=== PATIENT | female | born 1955 | race Caucasian/White ===

== ENCOUNTER → 2018-06-26 13:32 | Outpatient (CLI) | payer OTHER, SELFPAY ==
--- NOTE | 2018-06-26 | DI.MG.S_ITS ---
BILATERAL DIGITAL SCREENING MAMMOGRAM 3D/2D WITH CAD: 06/26/2018 CLINICAL: Routine screening. Comparison is made to exams dated: 05/18/2017 mammogram, 04/14/2016 mammogram, and 03/12/2015 mammogram - [facility]. The tissue of both breasts is extremely dense, which lowers the sensitivity of mammography. Current study was also evaluated with a Computer Aided Detection (CAD) system. There is an asymmetry in the right breast middle depth inner region seen on the craniocaudal view only. There is possible architectural distortion associated with the asymmetry. No other significant masses, calcifications, or other findings are seen in either breast. IMPRESSION: INCOMPLETE: NEEDS ADDITIONAL IMAGING EVALUATION The asymmetry in the right breast is indeterminate. Additional views with possible ultrasound are recommended. This exam was interpreted at Station ID: [id number]. NOTE: For mammograms, a report in lay terms will be sent to the patient. Approximately 15% of breast malignancies will not be visualized mammographically. In the management of a palpable breast mass, a negative mammogram must not discourage biopsy of a clinically suspicious lesion. Electronically Signed By: Scotty Morales M.D. ecl/:06/26/2018 19:30:38 letter sent: Additional Imaging Needed ACR BI-RADS Category 0: Incomplete 3340F
== END ==
PROVIDERS: Family Provider Family Medicine; PCP Family Medicine; Visit Provider Family Medicine
DX: Z12.31 Encounter for screening mammogram for malignant neoplasm of breast (principal)
CPT/HCPCS: 77063; 77067

== ENCOUNTER → 2018-07-10 13:48 | Outpatient (CLI) | payer OTHER, SELFPAY ==
--- NOTE | 2018-07-10 | DI.MG.S_ITS ---
UNILATERAL RIGHT DIGITAL DIAGNOSTIC MAMMOGRAM 3D/2D WITH ADDITIONAL VIEWS: 07/10/2018 CLINICAL: Additional evaluation requested from prior study. Comparison is made to exams dated: 06/26/2018 mammogram, 05/18/2017 mammogram, and 04/14/2016 mammogram - [facility]. The tissue of the right breast is extremely dense, which lowers the sensitivity of mammography. There is a benign oval equal density asymmetry with an indistinct margin in the right breast middle depth medial region seen on the craniocaudal view only. This is not seen in additional views. No other significant masses or calcifications are seen in the breast. IMPRESSION: BENIGN There is no mammographic evidence of malignancy. A 1 year screening mammogram is recommended. This exam was interpreted at Station ID: [id number]. NOTE: For mammograms, a report in lay terms will be sent to the patient. Approximately 15% of breast malignancies will not be visualized mammographically. In the management of a palpable breast mass, a negative mammogram must not discourage biopsy of a clinically suspicious lesion. Electronically Signed By: Franklin aleman/xavier:07/10/2018 15:12:12 letter sent: Normal Exam ACR BI-RADS Category 2: Benign Finding(s) 3342F
== END ==
PROVIDERS: Family Provider Family Medicine; PCP Family Medicine; Visit Provider Family Medicine
DX: R92.8 Other abnormal and inconclusive findings on diagnostic imaging of breast (principal)
CPT/HCPCS: 77065; G0279

== ENCOUNTER → 2019-08-06 16:38 | Outpatient (CLI) | payer MEDICARE, OTHER, SELFPAY ==
--- NOTE | 2019-08-06 | DI.RAD.S_ITS ---
PROCEDURE: XR ANKLE LT MIN 3V INDICATIONS: left ankle pain TECHNIQUE: 3 views of the ankle were acquired. COMPARISON: None. FINDINGS: Bones: No fractures or dislocations. Ankle mortise is normally aligned. No suspicious bony lesions. Well-defined plantar calcaneal enthesophyte is seen. Soft tissues: No tibiotalar joint effusion. Achilles tendon appears normal. IMPRESSION: No ankle fracture or dislocation. Intact ankle mortise. Dictated by: Richardson Lee M.D. on 08/06/2019 at 18:04 Approved by: Richardson Lee M.D. on 08/06/2019 at 18:05
== END ==
PROVIDERS: Family Provider Family Medicine; PCP Family Medicine; Visit Provider Family Medicine
DX: M25.572 Pain in left ankle and joints of left foot (principal)
CPT/HCPCS: 73610

== ENCOUNTER → 2019-08-14 16:49 | Outpatient (CLI) | payer MEDICARE, OTHER, SELFPAY ==
--- NOTE | 2019-08-14 | DI.MG.S_ITS ---
BILATERAL DIGITAL SCREENING MAMMOGRAM 3D/2D WITH CAD: 08/14/2019 CLINICAL: Routine screening. Comparison is made to exams dated: 07/10/2018 mammogram, 06/26/2018 mammogram, and 05/18/2017 mammogram - [facility]. The tissue of both breasts is heterogeneously dense. This may lower the sensitivity of mammography. Current study was also evaluated with a Computer Aided Detection (CAD) system. No significant masses, calcifications, or other findings are seen in either breast. There has been no significant interval change. IMPRESSION: NEGATIVE There is no mammographic evidence of malignancy. A 1 year screening mammogram is recommended. This exam was interpreted at Station ID: [id number]. NOTE: For mammograms, a report in lay terms will be sent to the patient. Approximately 15% of breast malignancies will not be visualized mammographically. In the management of a palpable breast mass, a negative mammogram must not discourage biopsy of a clinically suspicious lesion. Electronically Signed By: Ailyn burns/xavier:08/15/2019 08:32:12 letter sent: Normal Exam ACR BI-RADS Category 1: Negative 3341F
== END ==
PROVIDERS: PCP Family Medicine; Visit Provider Family Medicine
DX: Z12.31 Encounter for screening mammogram for malignant neoplasm of breast (principal)
CPT/HCPCS: 77063; 77067

== ENCOUNTER → 2019-12-19 09:26 | Outpatient (CLI) | payer MEDICARE, OTHER, SELFPAY ==
--- NOTE | 2019-12-19 | DI.US.S_ITS ---
PROCEDURE: US PELVIC COMPLETE INDICATIONS: PELVIC AND PERINEAL PAIN TECHNIQUE: Real-time scanning was performed of the pelvic organs, with image documentation. Additional endovaginal scanning was necessary due to incomplete visualization of the adnexal and endometrial structures by transabdominal scanning. COMPARISON: [facility], , PELVIC COMPLETE, 09/03/2012, 13:02. FINDINGS: Transabdominal scanning: Limited scanning through the kidneys shows no hydronephrosis. No pathologic free abdominal or pelvic fluid. Endovaginal scanning: Uterus: Uterus is normal in size at 7.8 x 4.7 x 4.3 cm. The endometrium measures 9 mm in combined thickness. Trace fluid can be seen along the endometrial stripe. A cervical polyp versus mass can be seen it measures up to 1 cm, with an associated vascular stalk. Hypoechoic uterine lesions are seen, which are attributed to fibroids. They measure as follows: Left anterior uterus, intramural, 1 x 1 x 1.1 cm Left posterior uterus, subserosal, 1.1 x 1.3 x 1.1 cm. Calcification is seen associated with this fibroid. Ovaries: The right ovary measures 1.3 x 0.7 x 0.9 cm. The left ovary measures 2.2 x 2 x 0.9 cm. The ovaries have a normal sonographic appearance. No adnexal masses are seen. IMPRESSION: A 1 cm mass versus polyp can be seen in the cervix. A vascular stalk and the seen. Please consider endoscopy for further evaluation. Multiple small uterine fibroids are again seen. Dictated by: Farshad Morton M.D. on 12/19/2019 at 11:19 Approved by: Farshad Morton M.D. on 12/19/2019 at 11:21
== END ==
PROVIDERS: PCP Family Medicine; Visit Provider Family Medicine
DX: R10.2 Pelvic and perineal pain (principal); D25.1 Intramural leiomyoma of uterus; D25.2 Subserosal leiomyoma of uterus; N88.9 Noninflammatory disorder of cervix uteri, unspecified
CPT/HCPCS: 76830; 76856

== ENCOUNTER → 2020-01-06 13:30 | Outpatient (CLI) | payer MEDICARE, OTHER, SELFPAY ==
--- NOTE | 2020-01-06 14:47 | DI.CT.S_ITS ---
PROCEDURE: CT KIDNEY URETER BLADDER (KUB) INDICATIONS: Hematuria, belly pains TECHNIQUE: Noncontrast 5 mm thick sections acquired from the diaphragms to the symphysis. 5 mm thick coronal and sagittal reformats were then performed. For radiation dose reduction, the following was used: automated exposure control, adjustment of mA and/or kV according to patient size. COMPARISON: [facility], CT, ABDOMEN/PELVIS WITHOUT CONTRAS, 04/10/2014, 15:14. FINDINGS: Image quality: Excellent. Lung bases: 7 mm left basilar opacity is present. It is unchanged since 2013. Heart size is normal. Urinary system: Both kidneys are normal in size. No kidney stones. No hydronephrosis or perinephric fat stranding. Both ureters appear non-dilated throughout their expected courses. Bladder wall thickness is normal; no calcified bladder stones. Other solid organs: Liver is normal in size. Gallbladder demonstrates a dependent calcification without wall thickening. Pancreas is normal in contours. Spleen is normal in size. No adrenal nodules. Peritoneum and bowel: Unenhanced bowel loops are nonobstructive. There is a thickened appearance of the descending colon extending to the sigmoid with diverticula. Normal pericolonic inflammatory changes identified. No free fluid or free air is identified. Nodes and vessels: No retroperitoneal or mesenteric adenopathy by size criteria. Aorta and inferior vena cava are normal in caliber. Abdominal wall: No ventral hernias. Pelvis: No free pelvic fluid. No inguinal hernias or adenopathy. Bones: No suspicious bony lesions. No vertebral body compression fractures. IMPRESSION: 1. There is thickening and mild pericolonic inflammatory change within the descending colon extending to the sigmoid colon. Diverticula are present in overall appearance is suggestive of colitis secondary to diverticulitis. No abscess, perforation or free air is identified. Dictated by: Hoda Poe M.D. on 01/06/2020 at 17:29 Approved by: Hoda Poe M.D. on 01/06/2020 at 17:36
== END ==
PROVIDERS: PCP Family Medicine; Referring Provider Family Medicine; Visit Provider Physician Assistant
DX: R31.9 Hematuria, unspecified (principal); K57.30 Diverticulosis of large intestine without perforation or abscess without bleeding
CPT/HCPCS: 74176

== ENCOUNTER → 2020-05-14 10:30 | Outpatient (CLI) | payer MEDICARE, OTHER, SELFPAY ==
--- NOTE | 2020-05-14 | DI.RAD.S_ITS ---
PROCEDURE: XR RIBS BI MIN 4V W CXR1V INDICATIONS: Rib pain TECHNIQUE: 2 views of the left and right ribs were acquired, along with a single view chest. COMPARISON: None. FINDINGS: Surgical changes and devices: The Bones and chest wall: No fractures or dislocations. No suspicious bony lesions. Overlying soft tissues appear unremarkable. Bilateral shoulder joint degeneration. Lungs and pleura: No pleural effusions or pneumothorax. Lungs appear clear. Mediastinum: Mediastinal contours appear normal. Heart size is normal. IMPRESSION: No acute disease Dictated by: Jed Gross M.D. on 05/14/2020 at 12:33 Approved by: Jed Gross M.D. on 05/14/2020 at 12:35
== END ==
PROVIDERS: PCP Family Medicine; Referring Provider Family Medicine; Visit Provider Family Medicine
DX: R07.81 Pleurodynia (principal); M19.011 Primary osteoarthritis, right shoulder; M19.012 Primary osteoarthritis, left shoulder
CPT/HCPCS: 71111

== ENCOUNTER → 2020-08-16 11:03 | Outpatient (CLI) | payer MEDICARE, OTHER, SELFPAY ==
--- NOTE | 2020-08-16 | DI.MG.S_ITS ---
BILATERAL DIGITAL SCREENING MAMMOGRAM 3D/2D WITH CAD: 08/16/2020 CLINICAL: Routine screening. Comparison is made to exams dated: 08/14/2019 mammogram, 07/10/2018 mammogram, 06/26/2018 mammogram, 05/18/2017 mammogram, 03/12/2015 mammogram, and 04/14/2016 mammogram - [facility]. The tissue of both breasts is heterogeneously dense. This may lower the sensitivity of mammography. Current study was also evaluated with a Computer Aided Detection (CAD) system. There are biopsy clips in the left breast. No significant masses, calcifications, or other findings are seen in either breast. There has been no significant interval change. IMPRESSION: NEGATIVE There is no mammographic evidence of malignancy. A 1 year screening mammogram is recommended. This exam was interpreted at Station ID: [id number]. NOTE: For mammograms, a report in lay terms will be sent to the patient. Approximately 15% of breast malignancies will not be visualized mammographically. In the management of a palpable breast mass, a negative mammogram must not discourage biopsy of a clinically suspicious lesion. Electronically Signed By: Moises thacker/xavier:08/16/2020 18:29:43 letter sent: Normal Exam ACR BI-RADS Category 1: Negative 3341F
== END ==
PROVIDERS: PCP Family Medicine; Referring Provider Family Medicine; Visit Provider Family Medicine
DX: Z12.31 Encounter for screening mammogram for malignant neoplasm of breast (principal)
CPT/HCPCS: 77063; 77067

== ENCOUNTER → 2020-09-07 11:00 | Outpatient (CLI) | payer MEDICARE, OTHER, SELFPAY ==
[2020-09-08 06:43] LABS: COVID19 Sendout Not Detected (Not Detect)
== END ==
PROVIDERS: PCP Family Medicine; Visit Provider Physician Assistant
DX: Z01.812 Encounter for preprocedural laboratory examination (principal)
CPT/HCPCS: 87635

== ENCOUNTER 2020-09-10 11:14 | Day surgery (SDC) | payer MEDICARE, OTHER, SELFPAY ==
[2020-09-08 07:37] VITALS: BMI 23.0
[2020-09-10] VITALS (8 sets, daily range): BP systolic 115–143; BP diastolic 47–73; PULSE 71–94; RESP 13–18; TEMP 36.1–37.2; O2SAT 87–98; BMI 22.4
--- NOTE | 2020-09-10 | PATH_ITS ---
[facility] Accession Number: [id number] . 01 Material submitted: . PART A: endometrium - ENDOMETRIAL CURETTINGS PART B: colon - TRANSVERSE COLON POLYP 6MM . 02 Diagnosis: A. Endometrium, Curettings: Scant, minute fragment of probable endometrial stroma. Additional levels were examined. No evidence of neoplasia. . B. Transverse Colon, Polyp 6 mm, Biopsy: Sessile serrated adenoma. [facility] 09/15/2020 1600 Local . 02 Electronically signed: . Jeannie Dejesus MD, Pathologist NPI- [id number] . 01 Gross description: . A. The specimen is received in formalin, labeled endometrial curettings, and consists of multiple minute rudolph-white fragments of soft tissue measuring 0.5 x 0.4 x 0.2 cm in aggregate. The specimen is filtered and entirely submitted in cassette A1. B. The specimen is received in formalin, labeled transverse colon polyp, and consists of a 0.7 x 0.5 x 0.3 cm, rudolph fragment of soft tissue which is entirely submitted in cassette B1. ([id number]) /[place] 09/11/2020 1815 Local . 02 Pathologist provided ICD-10: N95.0, D12.3 . 02 CPT . 271544, [id number] Performed at: 01 [facility] [address], [place], [place] [id number] MD Franklin Tsang MD Phone: [phone] Performed at: 02 [facility] [address] [place], [place] [id number] MD Jeannie Dejesus MD Phone: [phone]
--- NOTE | 2020-09-10 11:57 | SUR.PREOP ---
pt states she passed out on the toilet at 0900 this morning. When pt arrived she stated she was fine. RN checked blood sugar and it was 111. pt blood pressure was good. Pt was given fluids and RN let Dr. Pena no about her passing out at home.
[2020-09-10] MEDS: LACTATED RINGERS 1,000 ML 100 ML IV ×2 (12:00→14:16)
--- NOTE | 2020-09-10 12:26 | PM.HP.1 ---
History of Present Illness History of Present Illness Date Patient Seen: 09/10/20 Chief complaint: HYSTEROSCOPY DEC/POLYPECTOMY & SCREEN COLONOSCOPY Narrative: 65 year old female comes in today for consideration of a screening colonoscopy. One previously time colonoscopy approximately 10 years ago, reportedly normal. She has a history of diverticulitis, nothing current. Stools are at baseline constipated. Otherwise, there have been no lower GI symptoms suggesting disease such as change in bowel habits, bleeding, abdominal pain or anemia. There's been no family history of colon cancer or colon polyps. Overall health issues have been stable, including no major cardiac events for at least 6 weeks. PCP: Dr. 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 Patient History Medical History (Updated 09/10/20 @ 11:53 by Prema Matthews RN) Anxiety (Acute) Cervical polyp (Acute) Cervical stenosis (uterine cervix) (Acute) Diverticulitis (Acute) Endometrial hyperplasia (Acute) Fibroid (Acute) History of endometrial biopsy (Acute 08/18/20) Hypertension (Acute) Surgical History (Updated 09/08/20 @ 07:44 by Zenobia Solis RN) Hx of breast biopsy (Acute) Hx of tubal ligation (Acute) Family & Social History Social History: household members spouse Tobacco & Substance use: Smoking Status Never smoker alcohol intake current alcohol intake frequency holiday/special occasion Substance Use Type does not use Meds Home Medications and Allergies Home Medications Medication Instructions Recorded Confirmed Type alprazolam 0.25 mg tablet 0.25 mg PO DAILY 08/18/20 09/10/20 History atenolol 25 mg tablet 25 mg PO DAILY 08/18/20 09/10/20 History paroxetine HCl 40 mg tablet 40 mg PO DAILY 08/18/20 09/10/20 History Allergies Allergy/AdvReac Type Severity Reaction Status Date / Time iodine [IODINE] Allergy Intermediate Anaphylaxis Verified 09/10/20 11:44 ciprofloxacin [CIPROFLOXACIN] Allergy Unknown Verified 09/10/20 11:44 Penicillins [PENICILLINS] Allergy Unknown Verified 09/10/20 11:44 Sulfa (Sulfonamide Allergy Unknown rash Verified 09/10/20 11:44 Antibiotics) [SULFA (SULFONAMIDE ANTIBIOTICS)] Review of Systems Review of Systems ROS: Yes All systems reviewed with the patient and are negative except as otherwise documented Exam Vital Signs (past 8 hours): - 09/10/20 11:37 Temperature 98.3 F Pulse Rate 71 Respiratory Rate 18 Blood Pressure 138/71 Pulse Oximetry 98 Oxygen Delivery Method Room Air Narrative Exam Narrative: GENERAL: Alert and oriented, appearing stated age and in no acute distress. HEENT: Head normocephalic/atraumatic. Pupils equal, round, and reactive to light and accomodation. Extraocular muscles intact. Tympanic membranes clear. Nasal mucosa moist, septum midline. Oral mucosa moist, no lesions. Neck soft and supple, no lymphadenopathy. LUNGS: Clear to ausculation bilaterally, no wheezes, rhonchi or rales. CV: Normal S1 and S2 with regular rate and rhythm, no audible murmurs, rubs or gallops. ABDOMEN: Soft, non-tender, non-distended, no organomegaly. Positive bowel sounds. EXTREMITIES: No clubbing, cyanosis, or edema. NEURO: Cranial nerves II through XII grossly intact, no focal deficits. PSYCH: Alert and oriented x 3. SKIN: No concerning lesions. Assessment & Plan Assessment & Plan narrative: 1. Screening for colon cancer 2. History of diverticulitis 3. Constipation Plan for colonoscopy. The nature and character of the procedure as well as anticipated results were discussed. The possibility of not completing the procedure was also discussed. Possible complications including aspiration pneumonia, bleeding, perforation and reaction to medications either for sedation or preparation and missed lesions were discussed. Questions were answered and proceeding to the colonoscopy was elected. Informed consent signed. I sincerely appreciate the referral allowing me to participate in this patient's care. Please contact me with any questions or concerns.
--- NOTE | 2020-09-10 12:32 | PM.OP.ENDO ---
Operative Date/Time/Diagnoses Date of procedure: 09/10/20 Procedure Notes SCOAP/Timeout: 1:24 p.m. Procedure in detail: ENDOSCOPIST: Tish Mcdonald MD Anesthesiologist: Dr. Padron Sedation start time: 1:25 p.m. Sedation end time: 1:59 p.m. PROCEDURE: Colonoscopy with biopsy INDICATIONS: 1. Screening for colon cancer 2. History of diverticulitis 3. Constipation MEDICATION: Levsin 0.125 mg sublingual, incremental doses of Versed and fentanyl until appropriate level sedation achieved. ASA CLASS: 2 CECAL WITHDRAWAL TIME: 8 minutes COMPLICATIONS: None. EXTENT OF PROCEDURE: Cecum. QUALITY OF PREP: Good with portions of liquid stool. PROCEDURE: Prior to insertion of the colonoscope, a digital rectal examination was accomplished with circumferential palpation of the distal rectal mucosa without significant findings being noted. The high-definition pediatric colonoscope was passed into the rectum in the usual fashion and advanced over to the cecum without difficulty. The ileocecal valve, appendiceal stoma, and medial wall all could be inspected and []no abnormalities were seen. ASCENDING COLON: As the colonoscope was withdrawn, care was taken to expose and inspect the haustral folds and no abnormalities were seen. HEPATIC FLEXURE: Normal, no polyps, diverticula or other abnormalities. TRANSVERSE COLON: A 6 mm polyp seen and removed with cold biopsy forceps. Otherwise, no diverticula or other abnormalities. DESCENDING COLON: Moderate diverticulosis, no polyps or other abnormalities. SIGMOID COLON: Moderate diverticulosis, no polyps or other abnormalities. RECTUM: Normal. J maneuver was produced. There was no significant perianal disease. The J maneuver was broken. The remainder of the rectum was inspected and there was no external hemorrhoid disease. The scope was withdrawn. IMPRESSION: 1. Transverse polyp x1, 6 mm, removed with cold biopsy forceps 2. Moderate diverticulosis, left-sided PLAN: 1. Follow-up in clinic status post pathology results. The possibility of a missed lesion including a malignancy has been discussed with the patient previously. Potential alarm symptoms have been discussed and should be reported immediately. Post-procedure Recommendations: Will call with biopsy results Follow up: weeks (2) Disposition: PACU
[2020-09-10] MEDS: LACTATED RINGERS 1,000 ML 42 ML IV (12:38)
--- NOTE | 2020-09-10 12:44 | PM.PREOP ---
Pre-operative Note COVID-19 COVID-19 status: Negative Result date/Date tested (Pos, Neg/Pending): 09/06/20 Interval Note History & Physical reviewed/Exam performed by Physician: Yes Changes to H&P: No H&P completed within 30 days and has changed as indicated here:: 09/10/20
--- NOTE | 2020-09-10 12:44 | PM.HP.1 ---
History of Present Illness History of Present Illness Date Patient Seen: 09/10/20 Time Patient Seen: 12:45 Chief complaint: HYSTEROSCOPY DEC/POLYPECTOMY & SCREEN COLONOSCOPY Narrative: Patient is a 65-year-old 2 para 2 who presents for a D&C hysteroscopy due to a thickened endometrial lining on ultrasound, fluid in the endometrial canal, and cervical stenosis. Unable to do an endometrial biopsy in the office. Patient History Medical History (Updated 09/10/20 @ 11:53 by Prema Matthews RN) Anxiety (Acute) Cervical polyp (Acute) Cervical stenosis (uterine cervix) (Acute) Diverticulitis (Acute) Endometrial hyperplasia (Acute) Fibroid (Acute) History of endometrial biopsy (Acute 08/18/20) Hypertension (Acute) Surgical History (Updated 09/08/20 @ 07:44 by Zenobia Solis RN) Hx of breast biopsy (Acute) Hx of tubal ligation (Acute) Family & Social History Social History: household members spouse Tobacco & Substance use: Smoking Status Never smoker alcohol intake current alcohol intake frequency holiday/special occasion Substance Use Type does not use Meds Home Medications and Allergies Home Medications Medication Instructions Recorded Confirmed Type alprazolam 0.25 mg tablet 0.25 mg PO DAILY 08/18/20 09/10/20 History atenolol 25 mg tablet 25 mg PO DAILY 08/18/20 09/10/20 History paroxetine HCl 40 mg tablet 40 mg PO DAILY 08/18/20 09/10/20 History Allergies Allergy/AdvReac Type Severity Reaction Status Date / Time iodine [IODINE] Allergy Intermediate Anaphylaxis Verified 09/10/20 11:44 ciprofloxacin [CIPROFLOXACIN] Allergy Unknown Verified 09/10/20 11:44 Penicillins [PENICILLINS] Allergy Unknown Verified 09/10/20 11:44 Sulfa (Sulfonamide Allergy Unknown rash Verified 09/10/20 11:44 Antibiotics) [SULFA (SULFONAMIDE ANTIBIOTICS)] Exam Vital Signs (past 8 hours): - 09/10/20 11:37 Temperature 98.3 F Pulse Rate 71 Respiratory Rate 18 Blood Pressure 138/71 Pulse Oximetry 98 Oxygen Delivery Method Room Air Narrative Exam Narrative: HEENT: No thyromegaly, no anterior cervical or supraclavicular lymphadenopathy. Lungs:Clear to auscultation bilaterally, no wheezes. Cardiovascular: Regular rate and rhythm, no murmurs, rubs, or gallops. Abdomen: Well-healed scars. No hepatosplenomegaly. No masses palpable. External genitalia: Normal Vagina: Normal Cervix: Stenotic Bimanual exam: 8 Week size uterus. Mobile. Rectal: No masses. Assessment & Plan Assessment & Plan narrative: Assessment: 65-year-old 2 para 2 with a thickened endometrial lining and fluid in the endometrial canal on ultrasound Cervical stenosis Plan: D&C hysteroscopy with possible polypectomy The risks, benefits, and alternatives to the procedure were explained to the patient. The risks including bleeding, infection, and uterine perforation. She understands these risks and agrees to proceed. A full par Q was held and consent form was signed. COVID-19 COVID-19 status: Negative Result date/Date tested (Pos, Neg/Pending): 09/07/20 Time Spent With Patient Time with patient: 15-24 minutes
--- NOTE | 2020-09-10 13:47 | P.OP_ITS ---
Operative Date/Time/Diagnoses Date of procedure: 09/10/20 Time of procedure: 13:48 Pre-op diagnosis: Endometrial hyperplasia on ultrasound Cervical stenosis Fluid in the endometrial canal Post-op diagnosis: same Procedure & Clinicians Procedure: Procedures Operation Date: 09/10/20 12:30 Actual Procedures Side Surgeon p Hysteroscopy D&C Robyn Sears MD s Colonoscopy Tish Mcdonald MD Indications: Endometrial hyperplasia by ultrasound Fluid in the endometrial canal by ultrasound Cervical stenosis Surgeon: Robyn Sears Anesthesia Type: General (LMA) Operative Notes Findings: Eight week size slightly retroverted uterus Very stenotic cervical os Both fallopian tube ostia observed No polyps or fibroids Closure Type: not applicable Specimen(s): endometrial curettings Estimated blood loss (mL): 3 Blood products transfused: none Procedure in detail: After informed consent was obtained, the patient was taken to the operating room where she was placed in the dorsal supine position. After adequate LMA general anesthesia was achieved, she was placed in the dorsal lithotomy position, and prepped and draped in the usual sterile fashion. A time-out was performed. A bivalve speculum was placed into the vagina and the a nterior lip of the cervix grasped with a single-tooth tenaculum. Starting with the gold handled small dilators the cervical os was dilated up to a # 4 dilator. Then using the Hegar dilators dilation continue to # 8 Hegar dilator. There was a gush of serosanguineous fluid once the cervix was dilated. The hysteroscope passed easily into the endometrial cavity. Initial inspection showed both fallopian tube ostia. There were no polyps or fibroids. There was no thickening of the endometrial lining. The hysteroscope was removed from the uterus. Gentle sharp curettage was performed yielding minimal amount of endometrial curettings. The instruments were removed from the uterus. The single-tooth tenaculum was removed from the anterior lip of the cervix. The bivalve speculum was removed from the vagina. Sponge, lap, and instrument counts were correct x2. The patient tolerated the procedure well, and was taken to PACU in stable condition. Complications: none Post-operative Condition: stable Disposition: PACU Plan for aftercare: Home after recovery
--- NOTE | 2020-09-10 13:49 | SUR.OPER ---
Lithotomy on padded OR bed, head on pillow, arms secured on padded arm boards at <90 degrees abduction. Legs secured in padded yellow fins stirrups.
--- NOTE | 2020-09-10 13:49 | SUR.OPER ---
Lithotomy on padded OR bed, head on pillow, arms secured on padded arm boards at <90 degrees abduction. Legs secured in padded yellow fins stirrups. convert to left lateral decubitous for colonoscopy
--- NOTE | 2020-09-10 15:42 | SUR.PHASEII ---
Patient ambulatory to bathroom and denies any pain, nausea or dizziness. Small amount of drainage noted to feminine pad but no active bleeding with ambulation. Patient able to dress herself and fresh feminine pad provided. Home with family in stable condition. All discharge paperwork reviewed with patient and all belongings returned.
== END 2020-09-10 15:40 | disposition home or self-care (01) ==
PROVIDERS: PCP Student in an Organized Health Care Education/Training Program; Referring Provider Obstetrics & Gynecology; Visit Provider Obstetrics & Gynecology
PROC: 0UDB8ZZ Extraction of Endometrium, Via Natural or Artificial Opening Endoscopic (ICD-10-PCS; CPT 58558; principal; 2020-09-10 12:30)
PROC: 0DJD8ZZ Inspection of Lower Intestinal Tract, Via Natural or Artificial Opening Endoscopic (ICD-10-PCS; CPT 45378; 2020-09-10 12:30)
DX: Z12.11 Encounter for screening for malignant neoplasm of colon (principal); R93.89 Abnormal findings on diagnostic imaging of other specified body structures; I10 Essential (primary) hypertension; F41.9 Anxiety disorder, unspecified; N88.2 Stricture and stenosis of cervix uteri; K57.30 Diverticulosis of large intestine without perforation or abscess without bleeding; D12.3 Benign neoplasm of transverse colon
CPT/HCPCS: 58558; 45380; J1100; J2250; J2405; J2704; J3010

== ENCOUNTER → 2021-02-03 14:36 | Outpatient (CLI) | payer MEDICARE, OTHER, SELFPAY ==
[2021-02-03] MEDS: COVID-19 VACC, Ad26(JANSSEN)/PF 0.5 ML IM (14:56)
== END ==
PROVIDERS: PCP Student in an Organized Health Care Education/Training Program; Visit Provider Internal Medicine
DX: Z23 Encounter for immunization (principal)
CPT/HCPCS: 0031A; 91303

== ENCOUNTER → 2021-09-09 17:35 | Outpatient (CLI) | payer MEDICARE, OTHER, SELFPAY ==
--- NOTE | 2021-09-09 | DI.MG.S_ITS ---
BILATERAL DIGITAL SCREENING MAMMOGRAM 3D/2D WITH CAD: 09/09/2021 CLINICAL: Routine screening. Comparison is made to exams dated: 08/16/2020 mammogram, 08/14/2019 mammogram, 06/26/2018 mammogram, 05/18/2017 mammogram, 04/14/2016 mammogram, and 07/10/2018 mammogram - [facility]. The tissue of both breasts is heterogeneously dense. This may lower the sensitivity of mammography. Current study was also evaluated with a Computer Aided Detection (CAD) system. There are biopsy clips in the left breast. Right breast scar marker. No significant masses, calcifications, or other findings are seen in either breast. There has been no significant interval change. IMPRESSION: NEGATIVE There is no mammographic evidence of malignancy. A 1 year screening mammogram is recommended. This exam was interpreted at Station ID: [id number]. NOTE: For mammograms, a report in lay terms will be sent to the patient. Approximately 15% of breast malignancies will not be visualized mammographically. In the management of a palpable breast mass, a negative mammogram must not discourage biopsy of a clinically suspicious lesion. Electronically Signed By: Moises Rodriguez M.D. slc/:09/12/2021 07:58:34 letter sent: Normal Exam ACR BI-RADS Category 1: Negative 3341F
== END ==
PROVIDERS: PCP Family Medicine; Referring Provider Family Medicine; Visit Provider Family Medicine
DX: Z12.31 Encounter for screening mammogram for malignant neoplasm of breast (principal)
CPT/HCPCS: 77063; 77067

== ENCOUNTER → 2022-06-18 09:37 | Outpatient (CLI) | payer MEDICARE, OTHER, SELFPAY | PROVIDERS: PCP Family Medicine; Visit Provider Physician Assistant | DX: N34.3 Urethral syndrome, unspecified (principal) | CPT/HCPCS: 87077; 87086; 87186 ==

== ENCOUNTER → 2022-07-08 15:42 | Outpatient (CLI) | payer MEDICARE, OTHER, SELFPAY | PROVIDERS: PCP Family Medicine; Visit Provider Nurse Practitioner Family | DX: R30.0 Dysuria (principal) | CPT/HCPCS: 87077; 87086; 87186 ==

== ENCOUNTER → 2022-08-25 10:14 | Outpatient (CLI) | payer MEDICARE, OTHER, SELFPAY | PROVIDERS: PCP Family Medicine; Referring Provider Family Medicine; Visit Provider Family Medicine | DX: M85.851 Other specified disorders of bone density and structure, right thigh (principal); Z13.820 Encounter for screening for osteoporosis; Z78.0 Asymptomatic menopausal state | CPT/HCPCS: 77080 ==

== ENCOUNTER → 2022-09-15 10:58 | Outpatient (CLI) | payer MEDICARE, OTHER, SELFPAY ==
--- NOTE | 2022-09-15 | DI.MG.S_ITS ---
BILATERAL DIGITAL SCREENING MAMMOGRAM 3D/2D WITH CAD: 09/15/2022 CLINICAL: Routine screening. Comparison is made to exams dated: 09/09/2021 mammogram, 08/16/2020 mammogram, 08/14/2019 mammogram, 07/10/2018 mammogram, and 06/26/2018 mammogram - [facility]. Both breasts are heterogeneously dense, which may obscure small masses (category c / 51-75% glandular tissue). Current study was also evaluated with a Computer Aided Detection (CAD) system. There is an oval asymmetry with an obscured margin in the right breast middle depth superior region seen on the mediolateral oblique view only. No other significant masses, calcifications, or other findings are seen in either breast. IMPRESSION: INCOMPLETE: NEEDS ADDITIONAL IMAGING EVALUATION The oval asymmetry in the right breast is indeterminate. Additional views with possible ultrasound are recommended. Based on the Tyrer Cuzick model (a risk assessment model) the patient's lifetime risk is 6.3% and her 10 year risk is 3.5%. According to the ACR, ACS, and NCCN guidelines, an annual breast MRI exam along with mammogram is recommended if the patient's lifetime risk is 20% or greater. This exam was interpreted at Station ID: [id number]. NOTE: For mammograms, a report in lay terms will be sent to the patient. Approximately 15% of breast malignancies will not be visualized mammographically. In the management of a palpable breast mass, a negative mammogram must not discourage biopsy of a clinically suspicious lesion. Electronically Signed By: Moises Rodriguez M.D. slc/:09/15/2022 11:57:02 letter sent: Additional Imaging Needed ACR BI-RADS Category 0: Incomplete 3340F
== END ==
PROVIDERS: PCP Family Medicine; Referring Provider Family Medicine; Visit Provider Family Medicine
DX: Z12.31 Encounter for screening mammogram for malignant neoplasm of breast (principal)
CPT/HCPCS: 77063; 77067

== ENCOUNTER → 2022-10-11 11:56 | Outpatient (CLI) | payer MEDICARE, OTHER, SELFPAY ==
--- NOTE | 2022-10-11 11:58 | DI.MG.S_ITS ---
UNILATERAL RIGHT DIGITAL DIAGNOSTIC MAMMOGRAM 3D/2D WITH ADDITIONAL VIEWS: 10/11/2022 CLINICAL: Additional evaluation requested from prior study. Comparison is made to exams dated: 09/15/2022 mammogram, 09/09/2021 mammogram, and 08/16/2020 mammogram - [facility]. The right breast is heterogeneously dense, which may obscure small masses (category c / 51-75% glandular tissue). The asymmetry in the right breast middle depth superior region seen on the mediolateral oblique view only is not seen in additional views. No other significant masses or calcifications are seen in the breast. IMPRESSION: BENIGN The right breast asymmetry seen on the screening mammogram likely respresents superimposed fibroglandular tissue and is benign. There is no mammographic evidence of malignancy. Return to annual mammogram screening schedule is recommended. Based on the Tyrer Cuzick model (a risk assessment model) the patient's lifetime risk is 6.3% and her 10 year risk is 3.5%. According to the ACR, ACS, and NCCN guidelines, an annual breast MRI exam along with mammogram is recommended if the patient's lifetime risk is 20% or greater. This exam was interpreted at Station ID: [id number]. NOTE: For mammograms, a report in lay terms will be sent to the patient. Approximately 15% of breast malignancies will not be visualized mammographically. In the management of a palpable breast mass, a negative mammogram must not discourage biopsy of a clinically suspicious lesion. Electronically Signed By: Ailyn burns/:10/11/2022 12:15:45 letter sent: Normal Exam ACR BI-RADS Category 2: Benign Finding(s) 3342F
== END ==
PROVIDERS: PCP Family Medicine; Referring Provider Family Medicine; Visit Provider Family Medicine
DX: R92.8 Other abnormal and inconclusive findings on diagnostic imaging of breast (principal); N64.89 Other specified disorders of breast
CPT/HCPCS: 77065; G0279

== ENCOUNTER 2023-01-01 12:06 | Emergency (ER) | payer MEDICARE, OTHER, SELFPAY ==
[2023-01-01] VITALS (14 sets, daily range): BP systolic 132–180; BP diastolic 65–87; PULSE 61–79; RESP 16–24; TEMP 36.3–37; O2SAT 97–100; BMI 23.0
--- NOTE | 2023-01-01 12:23 | ED.GIBLEED ---
HPI - GI Bleed General Chief complaint: GI Bleed Stated complaint: diarrhea with bleeding, sweating Time Seen by Provider: 01/01/23 12:09 Source: patient and family Mode of arrival: Ambulatory Limitations: no limitations History of Present Illness HPI Narrative: Patient is a 67-year-old female. Not on anticoagulation who is here for evaluation less than 24 hours of lower abdominal pain and multiple episodes of bloody diarrhea. Several days ago she did travel to [place]. No recent antibiotics. Has not been around anyone who has been sick. No fevers. She stated that she did have an episode where she became very lightheaded and sweaty at home. She does have a history of diverticulitis but this feels different than that. She denies urinary symptoms. Did try some antidiarrheal medicines earlier this morning. She denies any rashes Related Data Home Medications Medication Instructions Recorded Confirmed alprazolam 0.25 mg tablet (Xanax) 0.25 mg PO DAILY 08/18/20 07/08/22 atenolol 25 mg tablet 25 mg PO DAILY 08/18/20 07/08/22 paroxetine HCl 40 mg tablet (Paxil) 40 mg PO DAILY 08/18/20 07/08/22 Previous Rx's Medication Instructions Recorded estradiol 2 mg (7.5 mcg/24 hour) 1 vaginalrin vaginal [id number] #1 ea 09/22/20 vaginal ring (Estring) phenazopyridine 100 mg tablet 100 mg PO TID PRN pain 6 doses #6 06/18/22 (Pyridium) tabs azithromycin 250 mg tablet See Rx Instructions PO .COMPLEX #6 01/01/23 tabs Allergies Allergy/AdvReac Type Severity Reaction Status Date / Time iodine [IODINE] Allergy Intermediate Anaphylaxis Verified 07/08/22 15:48 ciprofloxacin [CIPROFLOXACIN] Allergy Unknown Verified 07/08/22 15:48 Penicillins [PENICILLINS] Allergy Unknown Verified 07/08/22 15:48 Sulfa (Sulfonamide Allergy Unknown rash Verified 07/08/22 15:48 Antibiotics) [SULFA (SULFONAMIDE ANTIBIOTICS)] Review of Systems Constitutional Constitutional: Reports system reviewed and no additional complaints, except as documented Cardiovascular Cardiovascular: Reports system reviewed and no additional complaints, except as documented Respiratory Respiratory: Reports system reviewed and no additional complaints, except as documented Gastrointestinal Gastrointestinal: Reports system reviewed and no additional complaints, except as documented Genitourinary Genitourinary: Reports system reviewed and no additional complaints, except as documented Integumentary/Breasts Skin/Breast: Reports system reviewed and no additional complaints, except as documented Hematologic/Lymphatic On Anticoagulants: No Patient History Medical History Anxiety Cervical polyp Cervical stenosis (uterine cervix) Diverticulitis Endometrial hyperplasia Fibroid History of endometrial biopsy (08/18/20) Hypertension Surgical History Hx of breast biopsy Hx of tubal ligation Social History household members: spouse Smoking Status: Never smoker alcohol intake: current Smoking Status: Never smoker alcohol intake frequency: holidays/special occasions only Substance Use Type: does not use Exam Initial Vital Signs Initial Vital Signs: Vital Signs Temperature 97.4 F L 01/01/23 12:14 Pulse Rate 74 01/01/23 12:14 Respiratory Rate 16 01/01/23 12:14 Blood Pressure 164/78 H 01/01/23 12:14 Pulse Oximetry 100 01/01/23 12:14 Oxygen Delivery Method 01/01/23 12:14 Const General: cooperative and comfortable HENMT Head: normal to inspection and normocephalic Resp Effort & Inspection: normal respiratory effort Auscultation: clear to auscultation bilaterally Cardio Rate: regular rate Rhythm: regular rhythm GI Inspection: normal to inspection Skin General: no rashes or lesions noted Neuro General: patient alert, patient awake and moves all extremities Extrem General: normal to inspection and capillary refill normal Course Orders Ordered: ED Orders 01/01/23 12:15 Complete Blood Count AUTO DIFF Stat Comprehensive Metabolic Panel Stat Lipase Stat 01/01/23 12:24 EKG-12 Lead Stat 01/01/23 12:57 Urine Microscopic Stat 01/01/23 13:20 GI Panel (Film Array) Stat Discontinued Medications Sodium Chloride (Normal Saline 0.9%) 1,000 mls @ 1,000 mls/hr IV BOLUS ONE Stop: 01/01/23 13:22 Last Infusion: 01/01/23 14:00 Dose: 0 mls/hr Documented By: Admin: 01/01/23 12:48 Dose: 1,000 mls/hr Documented By: AMU Vital Signs Vital signs: Vital Signs - 8 hr 01/01/23 12:14 01/01/23 12:15 01/01/23 12:16 Temperature 97.4 F L Pulse Rate 74 79 Respiratory Rate 16 19 Blood Pressure 164/78 H 164/75 H Pulse Oximetry 100 100 Oxygen Delivery Method Room Air Room Air 01/01/23 12:16 01/01/23 12:30 01/01/23 12:30 Temperature Pulse Rate 74 77 Respiratory Rate 24 20 Blood Pressure 166/77 H Pulse Oximetry 100 99 Oxygen Delivery Method Room Air 01/01/23 13:00 01/01/23 13:00 01/01/23 13:34 Temperature Pulse Rate 65 Respiratory Rate 20 Blood Pressure 134/87 Pulse Oximetry 99 98 Oxygen Delivery Method 01/01/23 13:39 01/01/23 13:39 01/01/23 16:09 Temperature 98.6 F Pulse Rate 63 Respiratory Rate 18 Blood Pressure 132/65 Pulse Oximetry 98 Oxygen Delivery Method 01/01/23 14:00 01/01/23 14:00 01/01/23 14:30 Temperature Pulse Rate 64 Respiratory Rate 16 Blood Pressure 164/75 H 180/83 H Pulse Oximetry 99 Oxygen Delivery Method 01/01/23 14:30 01/01/23 15:00 01/01/23 15:00 Temperature Pulse Rate 61 64 Respiratory Rate 18 18 Blood Pressure 161/74 H Pulse Oximetry 97 98 Oxygen Delivery Method 01/01/23 15:32 01/01/23 15:33 01/01/23 15:33 Temperature Pulse Rate 67 63 Respiratory Rate 16 Blood Pressure 162/77 H Pulse Oximetry 99 100 Oxygen Delivery Method 01/01/23 16:00 Temperature Pulse Rate 67 Respiratory Rate 24 Blood Pressure Pulse Oximetry 98 Oxygen Delivery Method MDM - GI Bleed Lab Data Attestation: I reviewed the patient's lab results. 01/01/23 12:15 01/01/23 12:15 Labs: Lab Results 01/01/23 01/01/23 01/01/23 Range/Units 12:15 12:15 12:57 WBC 10.5 (4.5-11.0) X10^3/uL RBC 4.85 (4.0-5.2) X10^6/uL Hgb 14.2 (12.0-16.0) g/dL Hct 41.7 (36-46) % MCV 86.0 (80-100) fL MCH 29.4 (26-34) PG MCHC 34.2 (30-36) % RDW 13.5 (11.6-14.8) % Plt Count 253 (150-400) X10^3/uL Neut % (Auto) 73.0 (50-75) % Lymph % (Auto) 20.3 L (25-40) % [place] % (Auto) 5.5 (3-14) % Eos % (Auto) 0.5 L (2-4) % Baso % (Auto) 0.7 (0-2) % Neut # (Auto) 7700 H (7003-7682) /uL Lymph # (Auto) 2100 (1850-0688) /uL [place] # (Auto) 600 (0-900) /uL Eos # (Auto) 0 (0-450) /uL Baso # (Auto) 100 (0-100) /uL Sodium 136 L (137-145) mmol/L Potassium 3.6 (3.4-5.1) mmol/L Chloride 101 (98-107) mmol/L Carbon Dioxide 26 (22-32) mmol/L BUN 17 (7-17) mg/dL Creatinine 0.84 (0.52-1.04) mg/dL Estimated GFR > 60 (>60) mL/min BUN/Creatinine Ratio 20.2 (6-22) Glucose 115 H (80-110) mg/dL Calcium 9.1 (8.4-10.2) mg/dL Total Bilirubin 0.8 (0.2-1.3) mg/dL AST 28 (14-36) IU/L ALT 23 (<35) IU/L Alkaline Phosphatase 92 (38-126) U/L Total Protein 7.5 (6.3-8.2) g/dL Albumin 4.3 (3.5-5.0) g/dL Globulin 3.2 (1.7-4.1) g/dL Albumin/Globulin Ratio 1.3 (1.0-2.8) Lipase 85 (23-300) U/L Urine RBC 5-10/hpf H (0-5/HPF) Urine WBC 0-1/hpf (0-5/HPF) Ur Squamous Epith Cells 1-5 /hpf (0-5/HPF) Urine Bacteria Occasional (0-1) (None) Urine Mucus 1+ H (Negative) Ur Culture Indicated? Cult not indicated Stl C. cayetanensis PCR (Not Detect) Stool Rotavirus (PCR) (Not Detect) Stool Adenovirus (PCR) (Not Detect) Stool Astrovirus (PCR) (Not Detect) Stool Cryptosporidium PCR (Not Detect) Stl E.coli Shiga Tox PCR (Not Detect) St Sh/Enteroin Ecoli PCR (Not Detect) Stool E coli O157 PCR Stl Enterotoxigenic E PCR (Not Detect) Stool EPEC (PCR) (Not Detect) Stl E. histolytica PCR (Not Detect) Stool Giardia Lamblia PCR (Not Detect) Stool Sapovirus (PCR) (Not Detect) Stl P. shigelloides PCR (Not Detect) St Y.enterocolitica PCR (Not Detect) Stool Vibrio (PCR) (Not Detect) Stl Vibrio cholerae PCR (Not Detect) Stl Enteroaggr Ecoli PCR (Not Detect) Stl Norovirus GI/GII PCR (Not Detect) Campylobacter (PCR) (Not Detect) C. difficile Tox (PCR) (Not Detect) Salmonella (PCR) (Not Detect) 01/01/23 Range/Units 13:20 WBC (4.5-11.0) X10^3/uL RBC (4.0-5.2) X10^6/uL Hgb (12.0-16.0) g/dL Hct (36-46) % MCV (80-100) fL MCH (26-34) PG MCHC (30-36) % RDW (11.6-14.8) % Plt Count (150-400) X10^3/uL Neut % (Auto) (50-75) % Lymph % (Auto) (25-40) % [place] % (Auto) (3-14) % Eos % (Auto) (2-4) % Baso % (Auto) (0-2) % Neut # (Auto) (3250-6496) /uL Lymph # (Auto) (5673-9177) /uL [place] # (Auto) (0-900) /uL Eos # (Auto) (0-450) /uL Baso # (Auto) (0-100) /uL Sodium (137-145) mmol/L Potassium (3.4-5.1) mmol/L Chloride (98-107) mmol/L Carbon Dioxide (22-32) mmol/L BUN (7-17) mg/dL Creatinine (0.52-1.04) mg/dL Estimated GFR (>60) mL/min BUN/Creatinine Ratio (6-22) Glucose (80-110) mg/dL Calcium (8.4-10.2) mg/dL Total Bilirubin (0.2-1.3) mg/dL AST (14-36) IU/L ALT (<35) IU/L Alkaline Phosphatase (38-126) U/L Total Protein (6.3-8.2) g/dL Albumin (3.5-5.0) g/dL Globulin (1.7-4.1) g/dL Albumin/Globulin Ratio (1.0-2.8) Lipase (23-300) U/L Urine RBC (0-5/HPF) Urine WBC (0-5/HPF) Ur Squamous Epith Cells (0-5/HPF) Urine Bacteria (None) Urine Mucus (Negative) Ur Culture Indicated? Stl C. cayetanensis PCR Not detected (Not Detect) Stool Rotavirus (PCR) Not detected (Not Detect) Stool Adenovirus (PCR) Not detected (Not Detect) Stool Astrovirus (PCR) Not detected (Not Detect) Stool Cryptosporidium PCR Not detected (Not Detect) Stl E.coli Shiga Tox PCR Not detected (Not Detect) St Sh/Enteroin Ecoli PCR Not detected (Not Detect) Stool E coli O157 PCR Not Reportable Stl Enterotoxigenic E PCR Not detected (Not Detect) Stool EPEC (PCR) Detected H (Not Detect) Stl E. histolytica PCR Not detected (Not Detect) Stool Giardia Lamblia PCR Not detected (Not Detect) Stool Sapovirus (PCR) Not detected (Not Detect) Stl P. shigelloides PCR Not detected (Not Detect) St Y.enterocolitica PCR Not detected (Not Detect) Stool Vibrio (PCR) Not detected (Not Detect) Stl Vibrio cholerae PCR Not detected (Not Detect) Stl Enteroaggr Ecoli PCR Not detected (Not Detect) Stl Norovirus GI/GII PCR Not detected (Not Detect) Campylobacter (PCR) Not detected (Not Detect) C. difficile Tox (PCR) Not detected (Not Detect) Salmonella (PCR) Not detected (Not Detect) Urine Dip Bedside Urine Glucose Negative Bedside Urine Bilirubin - Negative Bedside Urine Ketone - Negative Urine Specific [place] 1.020 Bedside Urine Occult Blood ++ Bedside Urine pH 6.0 Bedside Urine Protein - Negative Bedside Urine Urobilinogen - Negative Bedside Urine Nitrite - Negative Bedside Urine Leukocytes - Negative Esterase ECG Data Attestation: I personally reviewed and interpreted this ECG as follows: Interpretation: Sinus rhythm Ventricular rate is 66 Normal axis Normal QRS Normal QTC Nonspecific ST T wave changes MDM Narrative Medical decision making narrative: Patient's vital signs are unremarkable. Labs are unremarkable. Not anemic. She does have a stool sample that is positive for EPEC. Has a benign abdominal exam. Had a long discussion with her regarding this. The E coli diagnosis is what is causing her discomfort. I feel that we can hold on any radiologic studies. Plan will be is to provide her a printed prescription for antibiotics however she is going to hold on this for the next 24 hours. If her symptoms improve she will not take the antibiotics however her symptoms worsen she will fill it and start taking as directed. We did discuss the importance of staying hydrated. She was given return precautions. She expressed understanding and agreement. Discharge Plan Departure Patient Disposition: Home Clinical Impression: Colitis due to enteropathogenic Escherichia coli Activity Restrictions/Additional Instructions: Continue to take all of your medications as directed. Sure that you were staying hydrated. You were given a prescription for antibiotics however like we discussed I recommend that you give this another several hours to see if your symptoms improve. If they do not or worsened start taking the antibiotics as directed. Return to the emergency department for new symptoms. Prescriptions: New azithromycin 250 mg tablet See Rx Instructions .ROUTE .COMPLEX Qty: 6 0RF Rx Instructions: For 250 mg dose pack: take 500 mg today (day 1), then 250 mg for 4 days (days 2-5) No Action phenazopyridine [Pyridium] 100 mg tablet 100 mg PO TID PRN (Reason: pain) Qty: 6 0RF paroxetine HCl [Paxil] 40 mg tablet 40 mg PO DAILY atenolol 25 mg tablet 25 mg PO DAILY alprazolam [Xanax] 0.25 mg tablet 0.25 mg PO DAILY Estring 2 mg (7.5 mcg /24 hour) ring 1 vaginalrin VAG [id number] Qty: 1 4RF Referrals: Tauxe,Jose, MD [Primary Care Provider] - Stand Alone Forms: Patient Portal/API
[2023-01-01 12:35] LABS: Add Manual Diff / Slide Review NO; Basophils Absolute Auto 100 /uL (0-100); Basophils Percent Auto 0.7 % (0-2); Eosinophils Absolute Auto 0 /uL (0-450); Eosinophils Percent Auto 0.5 % (2-4); Hematocrit 41.7 % (36-46); Hemoglobin 14.2 g/dL (12.0-16.0); Lymphocytes Absolute Auto 2100 /uL (1100-4500); Lymphocytes Percent Auto 20.3 % (25-40); Mean Corpuscular HGB Conc 34.2 % (30-36); Mean Corpuscular Hemoglobin 29.4 PG (26-34); Monocytes Absolute Auto 600 /uL (0-900); Monocytes Percent Auto 5.5 % (3-14); Neutrophils Absolute Auto 7700 /uL (1500-7000); Platelet Count 253 X10^3/uL (150-400); Red Blood Cell Count 4.85 X10^6/uL (4.0-5.2); Red Cell Distribution Width 13.5 % (11.6-14.8); White Blood Cell Count 10.5 X10^3/uL (4.5-11.0)
[2023-01-01 12:41] LABS: Alanine Aminotransferase 23 IU/L (<35); Albumin 4.3 g/dL (3.5-5.0); Albumin Globulin Ratio 1.3 (1.0-2.8); Alkaline Phosphatase 92 U/L (38-126); Aspartate Aminotransferase 28 IU/L (14-36); BUN Creatinine Ratio 20.2 (6-22); Bilirubin Total 0.8 mg/dL (0.2-1.3); Blood Urea Nitrogen 17 mg/dL (7-17); Calcium 9.1 mg/dL (8.4-10.2); Carbon Dioxide 26 mmol/L (22-32); Chloride 101 mmol/L (98-107); Estimated Glomerular Filt Rate > 60 mL/min (>60); Globulin 3.2 g/dL (1.7-4.1); Glucose 115 mg/dL (80-110); HEMOLYSIS < 15 (0-50); Lipase 85 U/L (23-300); Potassium 3.6 mmol/L (3.4-5.1); Sodium 136 mmol/L (137-145); Total Protein 7.5 g/dL (6.3-8.2)
[2023-01-01] MEDS: SODIUM CHLORIDE 0.9% 1,000 ML 1000 ML IV (12:48)
[2023-01-01 13:38] LABS: RBC Urine 5-10/HPF (0-5/HPF); Squamous Epithelial Cell Urine 1-5 /HPF (0-5/HPF); WBC Urine 0-1/HPF (0-5/HPF)
[2023-01-01 13:39] LABS: Bacteria Urine Occasional (0-1); Culture Indicated Urine Cult Not Indicated; Mucus Urine 1+ (Negative)
[2023-01-01 15:39] LABS: Adenovirus F 40/41 Not Detected (Not Detect); Astrovirus Not Detected (Not Detect); Campylobacter Not Detected (Not Detect); Clostridium difficile toxin AB Not Detected (Not Detect); Cryptosporidium Not Detected (Not Detect); Cyclospora cayetanensis Not Detected (Not Detect); Entamoeba histolytica Not Detected (Not Detect); Enteroaggregative E.coli Not Detected (Not Detect); Enteropathogenic E.coli Detected (Not Detect); Enterotoxigenic E.coli It/st Not Detected (Not Detect); Giardia lamblia Not Detected (Not Detect); Norovirus GI/GII Not Detected (Not Detect); Plesiomonsa shigelloides Not Detected (Not Detect); Rotavirus A Not Detected (Not Detect); Salmonella Not Detected (Not Detect); Sapovirus Not Detected (Not Detect); Shiga-like toxin-prod E.coli Not Detected (Not Detect); Shigella/Enteroinvasive E.coli Not Detected (Not Detect); Vibrio Not Detected (Not Detect); Vibrio cholerae Not Detected (Not Detect); Yersinia enterocolitica Not Detected (Not Detect)
== END 2023-01-01 16:09 | disposition home or self-care (01) ==
PROVIDERS: Emergency Provider Emergency Medicine; PCP Family Medicine
DX: A04.4 Other intestinal Escherichia coli infections (principal); R07.9 Chest pain, unspecified
CPT/HCPCS: 36415; 80053; 81003; 81015; 83690; 85025; 87507; 93005; 93010; 96360; 99284

== ENCOUNTER → 2024-02-05 14:17 | Outpatient (CLI) | payer MEDICARE, OTHER, SELFPAY ==
--- NOTE | 2024-02-05 14:19 | DI.MG.S_ITS ---
BILATERAL DIGITAL SCREENING MAMMOGRAM 3D/2D WITH CAD: 02/05/2024 CLINICAL: Routine screening. Comparison is made to exams dated: 09/15/2022 mammogram, 09/09/2021 mammogram, 08/16/2020 mammogram, 08/14/2019 mammogram, and 07/10/2018 mammogram - [facility]. Both breasts are heterogeneously dense, which may obscure small masses (category c / 51-75% glandular tissue). Current study was also evaluated with a Computer Aided Detection (CAD) system. There are benign post operative findings in the right breast. There also are biopsy clips in the left breast. No significant masses, calcifications, or other findings are seen in either breast. There has been no significant interval change. IMPRESSION: BENIGN There is no mammographic evidence of malignancy. A 1 year screening mammogram is recommended. Based on the Tyrer Cuzick model (a risk assessment model) the patient's lifetime risk is 5.9% and her 10 year risk is 3.5%. According to the ACR, ACS, and NCCN guidelines, an annual breast MRI exam along with mammogram is recommended if the patient's lifetime risk is 20% or greater. This exam was interpreted at Station ID: [id number]. NOTE: For mammograms, a report in lay terms will be sent to the patient. Approximately 15% of breast malignancies will not be visualized mammographically. In the management of a palpable breast mass, a negative mammogram must not discourage biopsy of a clinically suspicious lesion. Electronically Signed By: Manda Garcia M.D., PH.D eb/penrad:02/05/2024 14:55:13 letter sent: Normal Exam ACR BI-RADS Category 2: Benign Finding(s) 3342F
== END ==
LOC: MAMMO 14:18
PROVIDERS: PCP Family Medicine; Referring Provider Family Medicine; Visit Provider Family Medicine
DX: Z12.31 Encounter for screening mammogram for malignant neoplasm of breast (principal); R92.333 Mammographic heterogeneous density, bilateral breasts
CPT/HCPCS: 77063; 77067

== ENCOUNTER → 2024-04-05 10:33 | Outpatient (CLI) | payer MEDICARE, OTHER, SELFPAY ==
[2024-04-05 11:26] LABS: Influenza A - CEPHEID Flu A NEGATIVE (NEGATIVE); Influenza B - CEPHEID Flu B NEGATIVE (NEGATIVE); Respiratory Syncytial Virus Negative (Negative)
[2024-04-05 12:33] LABS: COVID-19 CEPHEID 4-PLEX PCR Negative (Negative)
== END ==
PROVIDERS: PCP Family Medicine; Visit Provider Nurse Practitioner Family
DX: R05.1 Acute cough (principal)
CPT/HCPCS: 0241U

== ENCOUNTER → 2024-04-05 10:38 | Outpatient (CLI) | payer MEDICARE, OTHER, SELFPAY ==
--- NOTE | 2024-04-05 10:40 | DI.RAD.S_ITS ---
PROCEDURE: XR CHEST 2V INDICATIONS: Cough TECHNIQUE: 2 views of the chest were acquired. COMPARISON: [facility], , CHEST 2 VIEW, 01/13/2010, 14:40. FINDINGS: Surgical changes and devices: None. Lungs and pleura: Lungs are clear. No pleural effusions or pneumothorax. Mediastinum: Mediastinal contours are normal. Heart size is normal. Bones and chest wall: No suspicious bony abnormalities. Soft tissues appear unremarkable. IMPRESSION: No acute cardiopulmonary process. Dictated by: Eddie Patten M.D. on 04/05/2024 at 20:06 Approved by: Eddie Patten M.D. on 04/05/2024 at 20:06
== END ==
PROVIDERS: PCP Family Medicine; Referring Provider Nurse Practitioner Family; Visit Provider Nurse Practitioner Family
DX: R05.1 Acute cough (principal)
CPT/HCPCS: 0241U; 71046

== ENCOUNTER → 2025-04-04 09:32 | Outpatient (CLI) | payer MEDICARE, OTHER, SELFPAY ==
--- NOTE | 2025-04-04 09:33 | DI.MG.S_ITS ---
MM screening mammo BI: 04/04/2025. BI-RADS: 2 CLINICAL: 69-year old female for bilateral screening mammogram. Tyrer-Cuzick lifetime risk of 3.3%. No personal or first-degree family history of breast cancer. The patient had prior bilateral breast biopsies. PRIOR EXAMS: 02/05/2024, 10/11/2022, 09/15/2022, 09/09/2021. MAMMOGRAPHY TECHNIQUE: 2D and 3D (tomosynthesis) digital mammographic views obtained, with additional images as needed for full coverage. Current study was also evaluated with a Computer Aided Detection (CAD) system. DENSITY C. The breasts are heterogeneously dense, which may obscure small masses. MAMMOGRAPHY FINDINGS Right: Benign-appearing post-surgical changes noted on the right. There are no suspicious masses, calcifications, or other findings in the breast. Left: Biopsy markers present on the left. There are no suspicious masses, calcifications, or other findings in the breast. IMPRESSION: * No evidence of malignancy with benign findings. RECOMMENDATIONS Bilateral * Annual screening mammography. OVERALL ASSESSMENT CATEGORY BI-RADS-2: Benign. The [employer] recommends annual screening mammography beginning at age 40 for women with average risk of breast cancer. ELECTRONICALLY SIGNED: Moises Rodriguez M.D. on 04/06/2025 at 08:37:37 AM PT Interpreting Station ID: [id number]
== END ==
PROVIDERS: PCP Family Medicine; Referring Provider Family Medicine; Visit Provider Family Medicine
DX: Z12.31 Encounter for screening mammogram for malignant neoplasm of breast (principal); R92.333 Mammographic heterogeneous density, bilateral breasts
CPT/HCPCS: 77063; 77067